=== PATIENT | female | born 1960 | race African-American/Black ===

== ENCOUNTER 2017-08-27 21:15 | Inpatient (IN) ==
[2017-08-27 23:15] LABS: Basophils # 0.1 10*3/uL (0.0-0.2); Basophils % 0.5 % (0.0-0.8); Eosinophils # 0.2 10*3/uL (0.0-0.87); Eosinophils % 1.6 % (0.00-10.9); Hematocrit 39.9 VOL% (35.7-47.0); Hemoglobin 13.2 GM/DL (12.0-16.0); Immature Granulocytes % 0.2 %; Immature Granulocytes Absolute 0.02 #; Lymphocytes # 4.1 10*3/uL (1.4-4.0); Lymphocytes % 39.7 % (21.3-54.2); Mean Corpuscular HGB Conc 33.1 GM/DL (32-36); Mean Corpuscular Hemoglobin 27 PG (27-34); Mean Corpuscular Volume 80.1 FL (87-102); Mean Platelet Volume 8.9 FL (9.6-12.0); Monocytes # 0.6 10*3/uL (0.11-0.8); Monocytes % 5.7 % (1.7-12.7); Neutrophils # 5.4 10*3/uL (1.4-7.4); Neutrophils % 52.3 % (38.7-73.9); Platelet Count 353 T/CUMM (130-400); Red Blood Count 4.98 MC/CUMM (3.8-5.5); Red Cell Distribution Width 14.6 % (9.3-17.3); White Blood Count 10.2 T/CUMM (4-12)
[2017-08-27 23:28] LABS: Apearance,Urine Slightly Hazy (Clear); Bacteria,Urine Occasional /HPF (Few); Bilirubin,Urine Negative (Negative); Blood, Urine Negative (Negative); Glucose,Urine (UA) Negative (Negative); Ketones,Urine Negative (Negative); Mucus,Urine Occasional /LPF (Occasional); Nitrite,Urine Negative (Negative); Protein,Urine Negative; RBC,Urine 6 /HPF (0-4); Squamous Epithelial Cell,Urine Occasional /HPF (0-10); Urine Color Yellow (Yellow); Urine Specific Gravity 1.011 (1.001-1.035); Urine Urobilinogen < 2.0 EU/DL (0.2-1.0); WBC,Urine 5 /HPF (0-6)
[2017-08-27] MEDS ORDERED: KETOROLAC 30 MG/1 ML VIAL IV STA (23:30)
[2017-08-27 23:32] LABS: Alanine Aminotransferase 18 U/L (13-56); Albumin 3.6 G/DL (3.4-5.0); Alkaline Phosphatase 128 U/L (45-117); Amylase 135 U/L (25-115); Aspartate Amino Transferase 10 U/L (0-37); Bilirubin,Total < 0.39 MG/DL (0.2-1.0); Blood Urea Nitrogen 13 MG/DL (7-18); Calcium 8.5 MG/DL (8.5-10.1); Glucose 108 MG/DL (74-106); Potassium 3.3 MMOL/L (3.5-5.1); Sodium 143 MMOL/L (136-145); Total Protein 8.7 G/DL (6.4-8.3)
[2017-08-27] MEDS ORDERED: SODIUM CHLORIDE 0.9% 1,000 ML IV STA (23:43)
[2017-08-28] MEDS ORDERED: cefTRIAXone 1,000 MG in SODIUM CHLORIDE 0.9% 100 ML IV STA (04:00)
[2017-08-28] MEDS ORDERED: ACETAMINOPHEN 325 MG TABLET PO PRN (05:09)
[2017-08-28] MEDS: MORPHINE 4 MG/1 ML VIAL IV PRN (06:24)
[2017-08-28] MEDS: LACTATED RINGERS 1,000 ML IV SCH (06:47)
[2017-08-28] MEDS ORDERED: ROCURONIUM 100 MG/10 ML VIAL IV ONE (12:28)
[2017-08-28] MEDS ORDERED: fentaNYL 100 MCG/2 ML VIAL ONE (12:28)
[2017-08-28] MEDS ORDERED: DEXAMETHASONE 4 MG/1 ML VIAL ONE (12:28)
[2017-08-28] MEDS ORDERED: LACTATED RINGERS 500 ML BAG IV ONE (12:28)
[2017-08-28] MEDS ORDERED: SUCCINYLCHOLINE 200 MG/10 ML VIAL ONE (12:28)
[2017-08-28] MEDS ORDERED: GLYCOPYRROLATE 0.4 MG/2 ML VIAL ONE (12:28)
[2017-08-28] MEDS ORDERED: LIDOCAINE 2% 5 ML VIAL ONE (12:28)
[2017-08-28] MEDS ORDERED: ONDANSETRON 4 MG/2 ML VIAL ONE (12:28)
[2017-08-28] MEDS ORDERED: PROPOFOL 200 MG/20 ML VIAL IV ONE (12:28)
[2017-08-28] MEDS ORDERED: MIDAZOLAM 2 MG/2 ML VIAL ONE (12:28)
[2017-08-28] MEDS ORDERED: PHENYLEPHRINE 10 MG/1 ML VIAL IV ONE (12:28)
[2017-08-29] MEDS: LACTATED RINGERS 1,000 ML IV SCH ×3 (01:30→06:37)
[2017-08-29] MEDS ORDERED: cefOXitin 2,000 MG in SYRINGE 1 EACH IV ONE (07:19)
[2017-08-29] MEDS ORDERED: LIDOCAINE 1%/EPI INJ 20 ML VIAL ONE (08:03)
[2017-08-29] MEDS ORDERED: TISSUE ADHESIVE 1 EACH APPLICATOR TOP ONE (08:06)
[2017-08-29] MEDS ORDERED: SCOPOLAMINE 1.5 MG PATCH TRANSDERM ONE (08:15)
[2017-08-29] MEDS ORDERED: SUGAMMADEX 200 MG/2 ML VIAL IV ONE ×2 (09:33→12:59)
[2017-08-29] MEDS ORDERED: SEVOFLURANE 1 UNIT/15 MINUTE INH ONE ×2 (09:42→13:41)
[2017-08-29] MEDS ORDERED: PROPOFOL 200 MG/20 ML VIAL IV ONE ×2 (09:42→13:41)
[2017-08-29] MEDS ORDERED: MIDAZOLAM 2 MG/2 ML VIAL ONE ×2 (09:43→13:40)
[2017-08-29] MEDS ORDERED: ACETAMINOPHEN 1,000 MG/100 ML VIAL IV ONE (09:43)
[2017-08-29] MEDS ORDERED: ONDANSETRON 4 MG/2 ML VIAL ONE ×2 (09:43→13:40)
[2017-08-29] MEDS ORDERED: KETOROLAC 30 MG/1 ML VIAL ONE (09:43)
[2017-08-29] MEDS ORDERED: PHENYLEPHRINE 1 MG/10 ML SYRINGE IV ONE (09:43)
[2017-08-29] MEDS ORDERED: ROCURONIUM 100 MG/10 ML VIAL IV ONE (09:44)
[2017-08-29] MEDS ORDERED: diphenhydrAMINE 50 MG/1 ML VIAL IV PRN (09:55)
[2017-08-29] MEDS ORDERED: PROMETHAZINE INJ 25 MG in SODIUM CHLORIDE 0.9% 50 ML IV PRN (09:55)
[2017-08-29] MEDS ORDERED: MORPHINE 10 MG/1 ML VIAL IV PRN (09:55)
[2017-08-29] MEDS ORDERED: MEPERIDINE 25 MG/1 ML VIAL IV PRN (09:55)
[2017-08-29] MEDS ORDERED: ONDANSETRON 4 MG/2 ML VIAL IV PRN (09:55)
[2017-08-29] MEDS: ONDANSETRON 4 MG/2 ML VIAL IV PRN ×2 (11:30→21:36)
[2017-08-29] MEDS ORDERED: INDOMETHACIN SUPP 50 MG SUPP RECTAL ONE (12:46)
[2017-08-29] MEDS ORDERED: fentaNYL 100 MCG/2 ML VIAL ONE (13:40)
[2017-08-29] MEDS: MORPHINE 4 MG/1 ML VIAL IV PRN (21:37)
[2017-08-30] MEDS: LACTATED RINGERS 1,000 ML IV SCH ×2 (07:17→07:18)
[2017-08-30 08:25] VITALS: BP 138/70
== END 2017-08-30 10:15 | disposition home or self-care (01) | DRG 418 ==
LOC: N.ED 21:15 → N.EDINP 08-28 05:09 → N.3E 08-28 05:57
PROVIDERS: ADMIT Surgery; ATTEND Surgery
PROC: LAPCHOL (2017-08-29 08:15)
PROC: ERCPWSP (ICD-10-PCS; 2017-08-29 12:35)